=== PATIENT | female | born 1985 | race Caucasian/White ===

== ENCOUNTER 2019-08-08 17:31 | Emergency (ER) | payer MEDICAID ==
[2019-08-08 17:39] VITALS: BP 150/78
--- NOTE | 2019-08-08 17:46 | ER Document Report ---
ED Medical Screen (RME) - General Chief Complaint: Buttock Injury Stated Complaint: LOLA GUILLEN Time Seen by Provider: 08/08/19 17:43 Notes: HPI: 33-year-old female presenting to the emergency department complaining of pain in the sacral area over the last 3 to 4 days. Patient states she has a tendency to close doors and drawers with her buttocks is unsure whether she may have injured herself but notes increased swelling and pain to the sacral region. No rectal pain. No fever I have greeted and performed a rapid initial assessment of this patient. A comprehensive ED assessment and evaluation of the patient, analysis of test results and completion of the medical decision making process will be conducted by additional ED providers PHYSICAL EXAMINATION: GENERAL: Well-appearing, well-nourished and in mild acute distress. HEAD: Atraumatic, normocephalic. EYES: sclera anicteric, conjunctiva are normal. ENT: Moist mucous membranes. NECK: Normal range of motion LUNGS: Normal work of breathing HEART: 2+ radial pulses bilaterally ABD: limited by positioning for exam in triage. BACK: No visible erythema in the pilonidal region there is soft tissue swelling and tenderness on palpation of this region EXTREMITIES: no pitting or edema. No cyanosis. NEUROLOGICAL: No focal neurological deficits. Moves all extremities spontaneously and on command. PSYCH: Normal mood, normal affect. SKIN: Warm, Dry, normal turgor, no rashes or lesions noted. TRAVEL OUTSIDE OF THE [place] IN LAST 30 DAYS: No - Related Data Allergies/Adverse Reactions: acetaminophen [From Vicodin] Allergy (Verified 08/08/19 17:37) hydrocodone [From Vicodin] Allergy (Verified 08/08/19 17:37) Past Medical History - Social History Chew tobacco use (# tins/day): No Frequency of alcohol use: None Drug Abuse: None Physical Exam - Vital signs Vitals: Temp Pulse Resp BP Pulse Ox 98.4 F 105 H 18 150/78 H 98 08/08/19 17:38 08/08/19 17:38 08/08/19 17:38 08/08/19 17:38 08/08/19 17:38 Course - Vital Signs Vital signs: Temp Pulse Resp BP Pulse Ox 98.4 F 105 H 18 150/78 H 98 08/08/19 17:38 08/08/19 17:38 08/08/19 17:38 08/08/19 17:38 08/08/19 17:38
--- NOTE | 2019-08-08 18:20 | RADIOLOGY REPORT (SQ) ---
EXAM DESCRIPTION: SACRUM AND COCCYX COMPLETED DATE/TIME: 08/08/2019 6:07 pm REASON FOR STUDY: pain poss inj COMPARISON: None. NUMBER OF VIEWS: Three views. TECHNIQUE: AP, lateral, and tilt views of the sacrum and coccyx. LIMITATIONS: None. FINDINGS: MINERALIZATION: Normal. BONES: No acute fracture or dislocation identified. No worrisome bone lesions. SOFT TISSUES: No soft tissue swelling. No foreign body. OTHER: No other significant finding. IMPRESSION: No acute fracture or dislocation identified. TECHNICAL DOCUMENTATION: JOB ID: [id number] [place]-72 2010 [employer]- All Rights Reserved Reading location - IP/workstation name: [email or web address]
[2019-08-08] MEDS ORDERED: OXYCODONE-ACETAMINOPHEN 5-325 MG TABLET PO ONE (20:30)
[2019-08-08] MEDS ORDERED: PROMETHAZINE HCL 25 MG TABLET PO ONE (20:30)
--- NOTE | 2019-08-08 20:32 | ER Document Report ---
ED General - General Chief Complaint: Buttock Injury Stated Complaint: HURT TAILBONE Time Seen by Provider: 08/08/19 17:43 Notes: Patient is a 33-year-old female that comes emergency department for chief complaint of about 4 days of worsening pain in the tailbone/sacrum area. She states that it has become so painful she cannot sit down. She states she wonders if she injured the area, she states she frequently closes doors by bumping the morning doorknob with that same area. She denies a fall. She denies difficulty ambulating. She denies rectal pain, abdominal pain, flank pain otherwise. She does admit to some nausea but she denies vomiting or fever. She denies history of pilonidal cyst abscess or MRSA. She does report a history of type 2 diabetes, previously on metformin but not currently on any medications. TRAVEL OUTSIDE OF THE [place] IN LAST 30 DAYS: No - Related Data Allergies/Adverse Reactions: acetaminophen [From Vicodin] Allergy (Verified 08/08/19 17:37) hydrocodone [From Vicodin] Allergy (Verified 08/08/19 17:37) Past Medical History - General Information source: Patient - Social History Smoking Status: Current Every Day Smoker Chew tobacco use (# tins/day): No Frequency of alcohol use: None Drug Abuse: None Lives with: Family Family History: Reviewed & Not Pertinent Patient has suicidal ideation: No Patient has homicidal ideation: No Endocrine Medical History: Reports: Hx Diabetes Mellitus Type 2 - Immunizations Hx Diphtheria, Pertussis, Tetanus Vaccination: Yes Review of Systems - Review of Systems Constitutional: No symptoms reported EENT: No symptoms reported Cardiovascular: No symptoms reported Respiratory: No symptoms reported Gastrointestinal: No symptoms reported Genitourinary: No symptoms reported Female Genitourinary: No symptoms reported Musculoskeletal: See HPI Skin: See HPI Hematologic/Lymphatic: No symptoms reported Neurological/Psychological: No symptoms reported Physical Exam - Vital signs Vitals: Temp Pulse Resp BP Pulse Ox 98.4 F 105 H 18 150/78 H 98 08/08/19 17:38 08/08/19 17:38 08/08/19 17:38 08/08/19 17:38 08/08/19 17:38 - Notes Notes: GENERAL: Alert, interacts well. Patient lying on her side but does not appear to be in distress HEAD: Normocephalic, atraumatic. EYES: Pupils equal, round, and reactive to light. Extraocular movements intact. ENT: Oral mucosa moist, tongue midline. Oropharynx unremarkable. Airway patent. LUNGS: Clear to auscultation bilaterally, no wheezes, rales, or rhonchi. No respiratory distress. HEART: Regular rate and rhythm. No murmur ABDOMEN: Soft, non-tender. Non-distended. RECTAL: Rectal exam is externally normal but patient does have erythema and tenderness at the gluteal cleft superiorly consistent with developing infection/pilonidal cyst abscess. No overt induration or head is noted however. Unremarkable otherwise. Enid WALTON present at bedside during exam. EXTREMITIES: Moves all 4 extremities spontaneously. No edema, normal radial and dorsalis pedis pulses bilaterally. No cyanosis. BACK: no cervical, thoracic, lumbar midline tenderness. No saddle anesthesia, normal distal neurovascular exam. Moves all extremities in full range of motion. NEUROLOGICAL: Alert and oriented x3. Normal speech. Cranial nerves II through XII grossly intact. PSYCH: Irritable SKIN: Warm, dry, normal turgor. No rashes or lesions noted. Course - Re-evaluation Re-evalutation: X-ray is normal. On evaluation patient is very irritable. Her exam is concerning for developing pilonidal cyst abscess although there is no clear head, I explained to patient that I would medicate her for pain, I recommended we perform some lab testing because of her tachycardia and nausea with uncontrolled diabetes, I also will bring the ultrasound back and evaluate the area to see if there is a drainable abscess. I also explained that she would likely need antibiotics. Patient and state understanding and agreement with plan. 08/08/19 20:37 Nursing staff approached me, stated that patient had become very angry, she apparently had told nursing staff that they had bedbugs and nursing staff had attempted to offer a change of clothing for containment, nursing staff also states that they were angry about the wait time and that they had not been medicated yet, I had just left the room less than 5 minutes ago. I went back to discuss with patient but I could not find the patient with a significant other, they appear to have eloped from the facility. Medical staff does state they saw him leaving the hospital. Before patient left I had expressed that I would place her back on medications for diabetes and I did discuss with her what I believe is an infection. - Vital Signs Vital signs: Temp Pulse Resp BP Pulse Ox 98.4 F 105 H 18 150/78 H 98 08/08/19 17:38 08/08/19 17:38 08/08/19 17:38 08/08/19 17:38 08/08/19 17:38 Discharge - Discharge Clinical Impression: Pilonidal cyst with abscess, Flank pain Disposition: ELOPED
== END 2019-08-08 20:44 | disposition left against medical advice (07) ==
LOC: ER 17:31
DX: L05.01 Pilonidal cyst with abscess (principal); E11.65 Type 2 diabetes mellitus with hyperglycemia; R11.0 Nausea; R00.0 Tachycardia, unspecified; F17.200 Nicotine dependence, unspecified, uncomplicated; Z91.14 Patient's other noncompliance with medication regimen; Z88.8 Allergy status to other drugs, medicaments and biological substances; Z88.6 Allergy status to analgesic agent; Z88.5 Allergy status to narcotic agent; Z53.29 Procedure and treatment not carried out because of patient's decision for other reasons
CPT/HCPCS: 72220; 99281

== ENCOUNTER 2019-09-02 13:33 | Observation (INO) | payer MEDICAID ==
--- NOTE | 2019-09-02 14:04 | ER Document Report ---
HPI - HPI Time Seen by Provider: 09/02/19 13:43 Pain Level: 3 Notes: 33-year-old female patient presenting to the emergency department chief complaint of pilonidal cyst. Patient was seen this morning at [facility] and Dr. Johnson tried to pull some fluid off of the abscess. This was sent for culture. Apparently Dr. Johnson recommended patient come to [facility], she initially refused but then presented to our triage desk. She denies any fevers. She reports her abscesses in the tailbone area and states that it is been there for about 3 to 4 days. - CONSTITUTIONAL Constitutional: DENIES: Fever, Chills - REPRODUCTIVE Reproductive: DENIES: : Past Medical History - General Information source: Patient - Social History Smoking Status: Current Every Day Smoker Chew tobacco use (# tins/day): No Frequency of alcohol use: None Drug Abuse: None Family History: Reviewed & Not Pertinent Patient has suicidal ideation: No Patient has homicidal ideation: No Endocrine Medical History: Reports: Hx Diabetes Mellitus Type 2 Past Surgical History: Reports: Hx Tubal Ligation - Immunizations Hx Diphtheria, Pertussis, Tetanus Vaccination: Yes Vertical Provider Document - CONSTITUTIONAL Notes: PHYSICAL EXAMINATION: GENERAL: Well-appearing, well-nourished and in no acute distress. HEAD: Atraumatic, normocephalic. EYES: Pupils equal round extraocular movements intact, conjunctiva are normal. ENT: Nares patent NECK: Normal range of motion LUNGS: No respiratory distress Musculoskeletal: Normal range of motion NEUROLOGICAL: Normal speech, normal gait. PSYCH: Normal mood, normal affect. SKIN: Large area of erythema and induration noted to upper buttocks. - INFECTION CONTROL TRAVEL OUTSIDE OF THE [place] IN LAST 30 DAYS: No Course - Re-evaluation Re-evalutation: Called and spoke with Dr. Kim. Patient will need to be admitted and then be n.p.o. after midnight. She will have incision and drainage performed in the OR tomorrow morning. Patient is aware of plan and agreeable to same. - Vital Signs Vital signs: Temp Pulse Resp BP Pulse Ox 98.3 F 122 H 18 131/72 H 92 09/02/19 13:36 09/02/19 13:36 09/02/19 13:36 09/02/19 13:36 04/01/20 13:36 Discharge - Discharge Clinical Impression: Abscess Condition: Stable Disposition: ADMITTED OBSERVATION Admitting Provider: Surgicalist Unit Admitted: Surgical Floor Referrals: MAGDA JOHNSON MD [Primary Care Provider] - Follow up as needed
[2019-09-02] MEDS ORDERED: NORMAL SALINE 1000 ML 1,000 ML IV ONE (14:05)
[2019-09-02 14:53] LABS: ABSOLUTE EOSINOPHILS # (AUTO) 0.1 10^3/uL (0.0-0.6); ABSOLUTE LYMPHOCYTES (AUTO) 1.9 10^3/uL (0.5-4.7); ABSOLUTE MONOCYTES (AUTO) 0.8 10^3/uL (0.1-1.4); ABSOLUTE NEUT (AUTO) 5.9 10^3/uL (1.7-8.2); BASOPHILS % (AUTO) 0.5 % (0-2); EOSINOPHILS % (AUTO) 1.1 % (0-6); HEMATOCRIT 36.3 % (36.0-47.0); HEMOGLOBIN 12.9 g/dL (12.0-15.5); LYMPHOCYTES % (AUTO) 21.2 % (13-45); MEAN CORPUSCULAR HEMOGLOBIN 31.1 pg (27.0-33.4); MEAN CORPUSCULAR HGB CONC 35.4 g/dL (32.0-36.0); MEAN CORPUSCULAR VOLUME 88 fl (80-97); MONOCYTES % (AUTO) 9.3 % (3-13); PLATELET COUNT 340 10^3/uL (150-450); RED BLOOD COUNT 4.14 10^6/uL (3.72-5.28); RED CELL DISTRIBUTION WIDTH 13.4 % (11.5-14.0); SEGMENTED NEUTROPHILS % (AUTO) 67.9 % (42-78); TOTAL CELLS COUNTED % (AUTO) 100 %; WHITE BLOOD COUNT 8.7 10^3/uL (4.0-10.5)
[2019-09-02 15:08] LABS: ALBUMIN 3.5 g/dL (3.5-5.0); ALKALINE PHOSPHATASE 93 U/L (38-126); ANION GAP 9 (5-19); ASPARTATE AMINO TRANSFERASE 23 U/L (14-36); BILIRUBIN,DIRECT 0.3 mg/dL (0.0-0.4); BILIRUBIN,TOTAL 0.3 mg/dL (0.2-1.3); BLOOD UREA NITROGEN 7 mg/dL (7-20); CALCIUM 9.6 mg/dL (8.4-10.2); CARBON DIOXIDE 35 mmol/L (22-30); CHLORIDE 90 mmol/L (98-107); POTASSIUM 3.5 mmol/L (3.6-5.0); TOTAL PROTEIN 7.2 g/dL (6.3-8.2)
[2019-09-02 15:17] LABS: GLUCOSE 406 mg/dL (75-110)
[2019-09-02] MEDS ORDERED: GLUCAGON,HUMAN RECOMB 1 MG INJ SUBCUT PRN (15:27)
[2019-09-02] MEDS ORDERED: ONDANSETRON HCL INJ/PF 4 MG/2 ML SDV IV PRN (15:27)
[2019-09-02] MEDS ORDERED: DEXTROSE 40% GEL 15 GM TUBE PO PRN ×2 (15:27)
[2019-09-02] MEDS ORDERED: DEXTROSE 50%-WATER 25 GM/50 ML DISP.SYRIN IV PRN ×2 (15:27)
[2019-09-02] MEDS ORDERED: METFORMIN HCL 500 MG TABLET PO ONE (15:31)
[2019-09-02] MEDS: NORMAL SALINE 1000 ML 1,000 ML IV PRN (15:44)
[2019-09-02] MEDS ORDERED: VANCOMYCIN HCL 0 MG in DEXTROSE 5%-WATER 250 ML IV NR (15:45)
[2019-09-02] MEDS: MORPHINE SULFATE 10 MG/ML INJ IV PRN ×2 (15:55→20:21)
[2019-09-02 16:04] LABS: APPEARANCE,URINE SLIGHTLY-CLOUDY; BILIRUBIN,URINE NEGATIVE (NEGATIVE); COLOR,URINE YELLOW; GLUCOSE, URINE >=500 mg/dL (NEGATIVE); KETONES,URINE TRACE mg/dL (NEGATIVE); LEUKOCYTE ESTERASE,URINE TRACE (NEGATIVE); NITRITE,URINE NEGATIVE (NEGATIVE); PROTEIN,URINE NEGATIVE (NEGATIVE); URINE SPECIFIC GRAVITY 1.025; UROBILINOGEN,URINE NEGATIVE mg/dL (<2.0)
--- NOTE | 2019-09-02 16:16 | PDOC CONSULTATION ---
Consultation Consult Date: 09/02/19 Attending physician:: CEASAR COKER Provider Consulted: SILVESTRE FIELDS JR Consult reason:: diabetes uncontrolled History of Present Illness Admission Date/PCP: 09/02/19 14:46 Patient complains of: Buttock pain History of Present Illness: CARINE PARKER is a 33 year old female who comes in with a 4-week history of having pain around her rectum and tailbone. Patient was actually in the emergency room on August 07 with the same complaint. However at that time patient eloped and left AMA.receiving treatment. States that she had had the pain near her tailbone for several days prior to that. Put this at now almost a 4-week history of pain.. She states she had a similar event when she was around 13 years old and had to have an I&D procedure done an outpatient, no problems since then.. Patient is on the schedule for tomorrow to have an I&D procedure surgery and we were to consult for her uncontrolled diabetes. Patient has had 6 children and with every she has had gestational diabetes is resolved once the delivery was performed. Ever this last delivery which occurred 18 months ago the diabetes persisted and she was actually on medication till December of last year when she stopped her medicine because she could not afford it. Patient states she started up her medicine for diabetes 1 week ago. Patient states that she has been on a sliding scale of insulin before while in the hospital but never as an outpatient. Patient denies other chronic illnesses such as hypertension or heart disease. Patient's father at age of 47 due to an OH. Patient states she smokes 1 pack of cigarettes per day and has a [id number] history. She denies drinking any alcohol. 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 Patient states that it is quite uncomfortable to sit but does not have any pain with bowel movements. Patient states that the wound has been draining on its own in a white milky substance with no foul odor. Past Medical History Cardiac Medical History: Reports: None Pulmonary Medical History: Reports: None EENT Medical History: Reports: None Neurological Medical History: Reports: None Endocrine Medical History: Reports: Diabetes Mellitus Type 2 Malignancy Medical History: Reports: None Psychiatric Medical History: Reports: Tobacco Dependency Past Surgical History Past Surgical History: Reports: Tubal Ligation Social History Smoking Status: Current Every Day Smoker Electronic Cigarette use?: No - Advance Directive Resuscitation Status: Full Code Family History Family History: Reviewed & Not Pertinent, CAD Parental Family History Reviewed: No Children Family History Reviewed: No Sibling(s) Family History Reviewed.: No Medication/Allergy Home Medications: Glipizide [Glucotrol 5 mg Tablet] 2.5 mg PO BID 09/02/19 Loratadine [Claritin 10 mg Tablet] 10 mg PO DAILY 09/02/19 Metformin HCl [Glucophage 500 mg Tablet] 500 mg PO BID 09/02/19 Allergies/Adverse Reactions: No Known Allergies Allergy (Unverified 09/02/19 16:05) Review of Systems Constitutional: ABSENT: chills, fever(s), headache(s), weight gain, weight loss Cardiovascular: ABSENT: chest pain, dyspnea on exertion, edema, orthropnea, palpitations Respiratory: ABSENT: cough, hemoptysis Gastrointestinal: ABSENT: abdominal pain, constipation, diarrhea, hematemesis, hematochezia, nausea, vomiting Genitourinary: PRESENT: other - Rectal and buttock pain, soft tissue swelling Neurological: ABSENT: abnormal gait, abnormal speech, confusion, dizziness, focal weakness, syncope Psychiatric: ABSENT: anxiety, depression, homidical ideation, suicidal ideation Physical Exam Vital Signs: Temp Pulse Resp BP Pulse Ox 98.3 F 122 H 18 131/72 H 92 09/02/19 13:36 09/02/19 13:36 09/02/19 13:36 09/02/19 13:36 09/02/19 13:36 Intake & Output 09/01/19 09/02/19 09/03/19 06:59 06:59 06:59 Intake Total 1000 Balance 1000 Weight 72.7 kg General appearance: PRESENT: no acute distress, well-developed, well-nourished Respiratory exam: PRESENT: clear to auscultation gilma. ABSENT: rales, rhonchi, wheezes Cardiovascular exam: PRESENT: RRR. ABSENT: diastolic murmur, rubs, systolic mu rmur Rectal exam: PRESENT: tenderness, other - With a supervisor paper products present, large area approximately 10 x 10 cm in diameter just cephalad to the rectum. Indurated, tender, edematous, red apparent abscess. Apeers to have had a source where it has been draining. Neurological exam: PRESENT: alert, awake, oriented to person, oriented to place, oriented to time, oriented to situation, CN II-XII grossly intact. ABSENT: motor sensory deficit Psychiatric exam: PRESENT: appropriate affect, normal mood. ABSENT: homicidal ideation, suicidal ideation Results Laboratory Results: 09/02/19 14:30 09/02/19 14:30 09/02/19 09/02/19 14:30 14:30 WBC 8.7 RBC 4.14 Hgb 12.9 Hct 36.3 MCV 88 MCH 31.1 MCHC 35.4 RDW 13.4 Plt Count 340 Seg Neutrophils % 67.9 Sodium 134.1 L Potassium 3.5 L Chloride 90 L Carbon Dioxide 35 H Anion Gap 9 BUN 7 Creatinine 0.45 L Est GFR ( Amer) > 60 Glucose 406 H* Calcium 9.6 Total Bilirubin 0.3 AST 23 Alkaline Phosphatase 93 Total Protein 7.2 Albumin 3.5 Assessment and Plan - Diagnosis (1) Diabetes type 2, uncontrolled Is this a current diagnosis for this admission?: Yes (2) Patient noncompliance Is this a current diagnosis for this admission?: Yes (3) Abscess Is this a current diagnosis for this admission?: Yes (4) Flank pain Is this a current diagnosis for this admission?: Yes (5) Pilonidal cyst with abscess Is this a current diagnosis for this admission?: Yes (6) Tobacco abuse Is this a current diagnosis for this admission?: Yes - Plan Summary Summary: Tells me she stopped all of her medications for diabetes last year in December 2018 when she moved down here from [place]. Tells me that she could not afford her medi cine. Also tells me that she started taking her medicine again 1 week ago.. According to the chart she is supposed to be taking metformin 500 mg twice daily and glipizide 2.5 mg twice daily. While interviewing the patient she received thousand milligrams of metformin as ordered by the ER provider, at approximately 1600 hrs. Patient is to be n.p.o. after midnight tonight. Think for the rest of the evening and tomorrow we will just treat her with a sliding scale of insulin, as you have ordered, and not give any further p.o. meds for her diabetes. Once she has her surgery tomorrow morning and begins eating a normal diet we can reinstitute her medications as prescribed above, and continue to cover with a sliding scale. I have ordered a hemoglobin A1c but I am sure it is going to be greatly elevated since she has not been taking her medicines regularly. I have also ordered a EKG, and do not see a need for a preop chest x-ray. Patient will need a primary care provider once she is discharged and we can help arrange this if necessary. - Time Time Spent with patient: 35 or more minutes
[2019-09-02] MEDS: INSULIN LISPRO 100 UNIT/ML 3 ML VIAL SUBCUT SCH ×2 (17:44→21:57)
--- NOTE | 2019-09-02 19:33 | PDOC H&P ---
History of Present Illness Admission Date/PCP: 09/02/19 14:46 Patient complains of: sacral pain and swelling History of Present Illness: CARINE PARKER is a 33 year old female with a several week history of pain and swelling in the pilonidal region. The patient has had an abscess of the area before, which spontaneously drained. Recently she was seen in the ER and given oral antibiotics. These have not helped. The abscess has continued to grow. The patient is a diabetic, but does not check her sugars or take her medications. Her blood sugar today is over 400. The patient denies fevers or chills, headache, chest pain, nausea, vomiting, melena, hematochezia, hematemesis, blurry vision, orthostasis, malaise, fatigue. She does report sacral pain. Her pain is 8 out of 10. Palpation and movement make it worse. Nothing makes it better. Her pain does not radiate. She reports redness and swelling, but denies recent drainage. Past Medical History Cardiac Medical History: Reports: None Pulmonary Medical History: Reports: None EENT Medical History: Reports: None Neurological Medical History: Reports: None Endocrine Medical History: Reports: Diabetes Mellitus Type 2 Malignancy Medical History: Reports: None Psychiatric Medical History: Reports: Tobacco Dependency Past Surgical History Past Surgical History: Reports: Tubal Ligation Social History Smoking Status: Current Every Day Smoker Electronic Cigarette use?: No - Advance Directive Resuscitation Status: Full Code Family History Family History: Reviewed & Not Pertinent, CAD Parental Family History Reviewed: Yes Children Family History Reviewed: Yes Sibling(s) Family History Reviewed.: Yes Medication/Allergy Home Medications: Glipizide [Glucotrol 5 mg Tablet] 2.5 mg PO BID 09/02/19 Loratadine [Claritin 10 mg Tablet] 10 mg PO DAILY 09/02/19 Metformin HCl [Glucophage 500 mg Tablet] 500 mg PO BID 09/02/19 Allergies/Adverse Reactions: No Known Allergies Allergy (Unverified 09/02/19 16:05) Review of Systems Eyes: ABSENT: visual disturbances Ears: ABSENT: hearing changes Nose, Mouth, and Throat: ABSENT: mouth pain, sore throat Cardiovascular: ABSENT: chest pain Respiratory: ABSENT: cough Gastrointestinal: ABSENT: abdominal pain, hematochezia, melena, nausea, vomiting Genitourinary: ABSENT: dysuria Integumentary: PRESENT: other - Swelling, erythema, and induration in the sacral area Neurological: ABSENT: confusion, convulsions, dizziness Psychiatric: ABSENT: anxiety, depression Endocrine: ABSENT: cold intolerance, heat intolerance Hematologic/Lymphatic: ABSENT: easy bleeding, easy bruising Physical Exam Vital Signs: Temp Pulse Resp BP Pulse Ox 98.3 F 98 18 117/67 97 09/02/19 17:22 09/02/19 17:22 09/02/19 17:22 09/02/19 17:22 09/02/19 17:22 Intake & Output 09/01/19 09/02/19 09/03/19 06:59 06:59 06:59 Intake Total 1000 Balance 1000 Weight 72.7 kg General appearance: PRESENT: no acute distress, cooperative Head exam: PRESENT: atraumatic, normocephalic Eye exam: PRESENT: EOMI, PERRLA. ABSENT: scleral icterus Mouth exam: PRESENT: moist, neck supple Teeth exam: PRESENT: poor dentation Neck exam: ABSENT: meningismus, tenderness, thyromegaly, tracheal deviation Respiratory exam: PRESENT: unlabored. ABSENT: tachypnea, wheezes Cardiovascular exam: ABSENT: tachycardia Pulses: PRESENT: normal radial pulses Vascular exam: PRESENT: normal capillary refill GI/Abdominal exam: PRESENT: soft. ABSENT: distended, firm, rebound, tenderness Extremities exam: ABSENT: clubbing Musculoskeletal exam: ABSENT: deformity Neurological exam: PRESENT: alert, awake, oriented to person, oriented to place, oriented to time, oriented to situation, CN II-XII grossly intact Psychiatric exam: PRESENT: anxious. ABSENT: agitated, depressed Focused psych exam: ABSENT: delusional Skin exam: PRESENT: erythema, other - Large sacral abscess, approximately 15 cm. There is erythema, induration, and fluctuance associated with it. She is tender to palpation in the area. There is no drainage appreciated at this time.. ABSENT: cyanosis, jaundice Results Laboratory Results: 09/02/19 14:30 09/02/19 14:30 09/02/19 09/02/19 09/02/19 14:30 14:30 15:49 WBC 8.7 RBC 4.14 Hgb 12.9 Hct 36.3 MCV 88 MCH 31.1 MCHC 35.4 RDW 13.4 Plt Count 340 Seg Neutrophils % 67.9 Sodium 134.1 L Potassium 3.5 L Chloride 90 L Carbon Dioxide 35 H Anion Gap 9 BUN 7 Creatinine 0.45 L Est GFR ( Amer) > 60 Glucose 406 H* Calcium 9.6 Total Bilirubin 0.3 AST 23 Alkaline Phosphatase 93 Total Protein 7.2 Albumin 3.5 Urine Color YELLOW Urine Appearance SLIGHTLY-CLOUDY Urine pH 7.0 Ur Specific Bally 1.025 Urine Protein NEGATIVE Urine Glucose (UA) >=500 H Urine Ketones TRACE H Urine Blood SMALL H Urine Nitrite NEGATIVE Ur Leukocyte Esterase TRACE H Urine WBC (Auto) 2 Urine RBC (Auto) 1 Assessment & Plan - Diagnosis (1) Diabetes type 2, uncontrolled Qualifiers: Glycemic state: with hyperglycemia Qualified Code(s): E11.65 - Type 2 diabetes mellitus with hyperglycemia Is this a current diagnosis for this admission?: Yes (2) Pilonidal cyst with abscess Is this a current diagnosis for this admission?: Yes - Plan Summary Plan Summary: 33-year-old uncontrolled diabetic female with a large pilonidal abscess. The patient has been taking antibiotics at home, without relief of her symptoms. She presents today for further treatment. The patient recently ate. I will start her on broad-spectrum antibiotics, consult the hospitalist for blood sugar control, and plan for surgical intervention tomorrow. Risks/benefits discussed, informed consent obtained, and all questions answered. The patient is in agreement with the treatment plan.
[2019-09-02] MEDS: PIPERACILLIN SODIUM/TAZOBACTAM 3.375 GM in NORMAL SALINE 100 ML IV SCH (20:09)
[2019-09-02] MEDS: VANCOMYCIN HCL 1,000 MG in DEXTROSE 5%-WATER 250 ML IV SCH (22:00)
[2019-09-03] MEDS: PIPERACILLIN SODIUM/TAZOBACTAM 3.375 GM in NORMAL SALINE 100 ML IV SCH ×5 (00:43→23:22)
[2019-09-03] MEDS: VANCOMYCIN HCL 1,000 MG in DEXTROSE 5%-WATER 250 ML IV SCH ×3 (05:41→20:59)
[2019-09-03] MEDS: MORPHINE SULFATE 10 MG/ML INJ IV PRN (05:50)
[2019-09-03] MEDS: INSULIN LISPRO 100 UNIT/ML 3 ML VIAL SUBCUT SCH ×4 (07:48→21:04)
[2019-09-03] MEDS ORDERED: BUPIVACAINE HCL 0.25 % INJ/PF (2.5 MG/1 ML) 30 ML VIAL ONE (08:48)
[2019-09-03] MEDS ORDERED: LIDOCAINE 1% INJ-PF (10 MG/ML) 30 ML SDV ONE (08:48)
[2019-09-03] MEDS ORDERED: ONDANSETRON HCL INJ/PF 4 MG/2 ML SDV ONE (08:53)
[2019-09-03] MEDS ORDERED: MIDAZOLAM 2 MG/2 ML INJ ONE (08:53)
[2019-09-03] MEDS ORDERED: FENTANYL CITRATE INJ/PF 100 MCG/2 ML AMPUL ONE (08:53)
[2019-09-03] MEDS ORDERED: PROPOFOL INJ 200 MG/20 ML VIAL IV ONE (08:54)
--- NOTE | 2019-09-03 09:30 | PDOC PROGRESS REPORT ---
Subjective Progress Note for:: 09/03/19 Subjective:: 33-year-old female, diabetic, with a large pilonidal abscess. The patient continues to complain of buttock pain, swelling, induration, and redness. She denies overt fevers or chills. She denies nausea, vomiting, headache, dizziness, orthostasis, fatigue, malaise. Reason For Visit: LARGE INFECTED PILONIDAL CYST, HYPERGLYCEMIA Physical Exam Vital Signs: Temp Pulse Resp BP Pulse Ox 98.3 F 94 16 141/75 H 99 09/03/19 07:51 09/03/19 07:51 09/03/19 07:51 09/03/19 07:51 09/03/19 07:51 Intake & Output 09/02/19 09/03/19 09/04/19 06:59 06:59 06:59 Intake Total 2350 250 Balance 2350 250 Weight 76.3 kg General appearance: PRESENT: no acute distress, cooperative Head exam: PRESENT: atraumatic, normocephalic Eye exam: PRESENT: EOMI, PERRLA. ABSENT: scleral icterus Mouth exam: PRESENT: moist, neck supple Neck exam: ABSENT: meningismus, tenderness, thyromegaly, tracheal deviation Cardiovascular exam: ABSENT: tachycardia Pulses: PRESENT: normal radial pulses GI/Abdominal exam: PRESENT: soft. ABSENT: tenderness Skin exam: PRESENT: erythema, other - Fluctuant mass in the pilonidal area, extending to the right of the midline. I estimate it to be approximately 10 to 15 cm in diameter. Results Laboratory Results: 09/02/19 14:30 09/02/19 14:30 09/02/19 09/02/19 09/02/19 14:30 14:30 15:49 WBC 8.7 RBC 4.14 Hgb 12.9 Hct 36.3 MCV 88 MCH 31.1 MCHC 35.4 RDW 13.4 Plt Count 340 Seg Neutrophils % 67.9 Sodium 134.1 L Potassium 3.5 L Chloride 90 L Carbon Dioxide 35 H Anion Gap 9 BUN 7 Creatinine 0.45 L Est GFR ( Amer) > 60 Glucose 406 H* Calcium 9.6 Total Bilirubin 0.3 AST 23 Alkaline Phosphatase 93 Total Protein 7.2 Albumin 3.5 Urine Color YELLOW Urine Appearance SLIGHTLY-CLOUDY Urine pH 7.0 Ur Specific [place] 1.025 Urine Protein NEGATIVE Urine Glucose (UA) >=500 H Urine Ketones TRACE H Urine Blood SMALL H Urine Nitrite NEGATIVE Ur Leukocyte Esterase TRACE H Urine WBC (Auto) 2 Urine RBC (Auto) 1 Assessment & Plan - Diagnosis (1) Diabetes type 2, uncontrolled Qualifiers: Glycemic state: with hyperglycemia Qualified Code(s): E11.65 - Type 2 diabetes mellitus with hyperglycemia Is this a current diagnosis for this admission?: Yes (2) Pilonidal cyst with abscess Is this a current diagnosis for this admission?: Yes - Plan Summary Plan Summary: 33-year-old uncontrolled diabetic female with a large pilonidal abscess. The patient has been taking antibiotics at home, without relief of her symptoms. She was admitted for surgical treatment. Continue antibiotics. Plan for incision and drainage today. Risks/benefits discussed, informed consent obtained, and all questions answered.
--- NOTE | 2019-09-03 09:37 | EKG REPORT ---
SEVERITY:- BORDERLINE ECG - SINUS RHYTHM BORDERLINE T ABNORMALITIES, INFERIOR LEADS : Confirmed by: Meir Berg 03-Sep-2019 09:36:45
[2019-09-03] MEDS ORDERED: MEPERIDINE HCL/PF INJ 25 MG/1 ML DISP.SYRIN IV PRN (09:58)
[2019-09-03] MEDS ORDERED: FENTANYL CITRATE INJ/PF 100 MCG/2 ML AMPUL IV PRN ×3 (09:58)
[2019-09-03] MEDS ORDERED: DIPHENHYDRAMINE HCL 50 MG/ML VIAL IV PRN (09:58)
[2019-09-03] MEDS ORDERED: PROMETHAZINE HCL INJ 25 MG/1 ML VIAL IV PRN ×2 (09:58)
[2019-09-03] MEDS ORDERED: OXYCODONE-ACETAMINOPHEN 5-325 MG TABLET PO PRN ×2 (09:58)
[2019-09-03] MEDS ORDERED: MORPHINE SULFATE 10 MG/ML INJ IV PRN (09:58)
--- NOTE | 2019-09-03 10:42 | Operative Report ---
Nonrecallable Operative Report DATE OF SURGERY: 09/03/19 PREOPERATIVE DIAGNOSIS: 15 cm pilonidal abscess POSTOPERATIVE DIAGNOSIS: Same as above OPERATION: 1. Incision and drainage of large, loculated, 15 cm pilonidal abscess. 2. Sharp, excisional debridement of necrotic skin and fatty soft tissue. SURGEON: CEASAR COKER ANESTHESIA: Spinal - With local TISSUE REMOVED OR ALTERED: 1. Debrided necrotic soft tissue. 2. Wound culture. COMPLICATIONS: None apparent ESTIMATED BLOOD LOSS: 20 cc PROCEDURE: Drains/implants: #1 [place] drain in left lateral tunneling tract. 2. Kerlix soaked in Betadine within the large midline cavity. Procedure in detail: After informed consent was obtained, the patient was brou ght to the operating room and laid in the left lateral decubitus position. After adequate anesthesia had been obtained, a midline incision was created. There was a large amount of purulent material present. The abscess cavity was then entered. Wound cultures were taken. There is a large amount of necrotic subcutaneous tissue. This was debrided away sharply with a 15 blade scalpel. After the cavity was inspected. There was a tunneling sinus extending to the left lateral side. This was explored digitally. A counterincision was created in the left lateral back/buttock area. A [place] drain was placed through this area to keep the tract open. Next, the main cavity was irrigated and curetted. The cavity measured approximately 15 cm in total diameter. Once the cavity was cleaned, a Kerlix soaked in Betadine was packed into the wound. A dressing was placed, and the procedure was concluded. All sponge, instrument, and needle counts were correct x2. Condition: Stable.
[2019-09-03] MEDS: HYDROCODONE/ACETAMINOPHEN 10-325 MG TABLET PO PRN (17:16)
[2019-09-03] MEDS: GLIPIZIDE 5 MG TABLET PO SCH (18:07)
--- NOTE | 2019-09-03 18:28 | PDOC PROGRESS REPORT ---
Subjective Progress Note for:: 09/03/19 Reason For Visit: LARGE INFECTED PILONIDAL CYST, HYPERGLYCEMIA 09/03/2019 Diabetes uncontrolled, hyperglycemia, pilonidal cyst Physical Exam Vital Signs: Temp Pulse Resp BP Pulse Ox 98.1 F 88 18 171/68 H 96 09/03/19 16:05 09/03/19 16:05 09/03/19 16:05 09/03/19 16:05 09/03/19 16:05 Intake & Output 09/02/19 09/03/19 09/04/19 06:59 06:59 06:59 Intake Total 2350 2350 Output Total 0 Balance 2350 2350 Weight 76.3 kg General appearance: PRESENT: no acute distress, other - Patient is asking to go home on the afternoon of surgery Respiratory exam: PRESENT: clear to auscultation gilma. ABSENT: rales, rhonchi, wheezes Cardiovascular exam: PRESENT: RRR. ABSENT: diastolic murmur, rubs, systolic mu rmur Neurological exam: PRESENT: alert, awake, oriented to person, oriented to place, oriented to time, oriented to situation, CN II-XII grossly intact. ABSENT: motor sensory deficit Psychiatric exam: PRESENT: appropriate affect, normal mood, other - Patient is in a good mood. ABSENT: homicidal ideation, suicidal ideation Results Laboratory Results: 09/02/19 14:30 09/02/19 14:30 Assessment and Plan - Diagnosis (1) Diabetes type 2, uncontrolled Qualifiers: Glycemic state: with hyperglycemia Qualified Code(s): E11.65 - Type 2 d iabetes mellitus with hyperglycemia Is this a current diagnosis for this admission?: Yes (2) Patient noncompliance Is this a current diagnosis for this admission?: Yes (3) Abscess Is this a current diagnosis for this admission?: Yes (4) Flank pain Is this a current diagnosis for this admission?: Yes (5) Pilonidal cyst with abscess Is this a current diagnosis for this admission?: Yes (6) Tobacco abuse Is this a current diagnosis for this admission?: Yes - Plan Summary Summary: Tells me she stopped all of her medications for diabetes last year in December 2018 when she moved down here from [place]. Tells me that she could not afford her medicine. Also tells me that she started taking her medicine again 1 week ago.. According to the chart she is supposed to be taking metformin 500 mg twice daily and glipizide 2.5 mg twice daily. While interviewing the patient she received thousand milligrams of metformin as ordered by the ER provider, at approximately 1600 hrs. Patient is to be n.p.o. after midnight tonight. Think for the rest of the evening and tomorrow we will just treat her with a sliding scale of insulin, as you have ordered, and not give any further p.o. meds for her diabetes. Once she has her surgery tomorrow morning and begins eating a normal diet we can reinstitute her medications as prescribed above, and continue to cover with a sliding scale. I have ordered a hemoglobin A1c but I am sure it is going to be greatly elevated since she has not been taking her medicines regularly. I have also ordered a EKG, and do not see a need for a preop chest x-ray. Patient will need a primary care provider once she is discharged and we can help arrange this if necessary. 09/03/2019 Vital signs this morning showed her blood pressure to be up at 171/68, he was on no antihypertensives prior to coming to the hospital Blood sugar this morning was improved down to 332, and pressure was 98.1 pulse was 88 and regular Hemoglobin A1c 11.9 Repeat labs in the morning She has put back on both her metformin and glipizide. At the time of discharge I will write for a 30-day prescription - Time Time Spent with patient: 25-34 minutes
[2019-09-03] MEDS: NORMAL SALINE 1000 ML 1,000 ML IV PRN (21:03)
[2019-09-04] MEDS: PIPERACILLIN SODIUM/TAZOBACTAM 3.375 GM in NORMAL SALINE 100 ML IV SCH (05:16)
[2019-09-04] MEDS: HYDROCODONE/ACETAMINOPHEN 10-325 MG TABLET PO PRN (06:24)
[2019-09-04] MEDS: VANCOMYCIN HCL 1,000 MG in DEXTROSE 5%-WATER 250 ML IV SCH (06:24)
[2019-09-04 07:03] LABS: ABSOLUTE EOSINOPHILS # (AUTO) 0.1 10^3/uL (0.0-0.6); ABSOLUTE LYMPHOCYTES (AUTO) 1.8 10^3/uL (0.5-4.7); ABSOLUTE MONOCYTES (AUTO) 0.6 10^3/uL (0.1-1.4); ABSOLUTE NEUT (AUTO) 3.8 10^3/uL (1.7-8.2); BASOPHILS % (AUTO) 0.6 % (0-2); EOSINOPHILS % (AUTO) 2.3 % (0-6); HEMATOCRIT 30.8 % (36.0-47.0); LYMPHOCYTES % (AUTO) 27.9 % (13-45); MEAN CORPUSCULAR HEMOGLOBIN 30.5 pg (27.0-33.4); MEAN CORPUSCULAR HGB CONC 34.7 g/dL (32.0-36.0); MEAN CORPUSCULAR VOLUME 88 fl (80-97); MONOCYTES % (AUTO) 9.6 % (3-13); PLATELET COUNT 281 10^3/uL (150-450); RED CELL DISTRIBUTION WIDTH 13.3 % (11.5-14.0); SEGMENTED NEUTROPHILS % (AUTO) 59.6 % (42-78); TOTAL CELLS COUNTED % (AUTO) 100 %; WHITE BLOOD COUNT 6.4 10^3/uL (4.0-10.5)
[2019-09-04 07:05] LABS: BLOOD UREA NITROGEN 4 mg/dL (7-20); CHLORIDE 98 mmol/L (98-107); GLUCOSE 205 mg/dL (75-110); POTASSIUM 3.5 mmol/L (3.6-5.0)
[2019-09-04 07:06] LABS: HEMOGLOBIN 10.7 g/dL (12.0-15.5); VANCOMYCIN,TROUGH 13.5 ug/mL (5.0-20.0)
[2019-09-04 07:18] LABS: CARBON DIOXIDE 33 mmol/L (22-30)
[2019-09-04 07:20] LABS: ANION GAP 5 (5-19)
--- NOTE | 2019-09-04 09:19 | PDOC PROGRESS REPORT ---
Subjective Progress Note for:: 09/04/19 Reason For Visit: LARGE INFECTED PILONIDAL CYST, HYPERGLYCEMIA Pilonidal cyst, diabetes uncontrolled, patient noncompliant, left radial nerve palsy Physical Exam Vital Signs: Temp Pulse Resp BP Pulse Ox 98.0 F 92 17 117/65 99 09/04/19 00:15 09/04/19 00:15 09/04/19 00:15 09/04/19 00:15 09/04/19 00:15 Intake & Output 09/03/19 09/04/19 09/05/19 06:59 06:59 06:59 Intake Total 2350 5480 Output Total 0 Balance 2350 5480 Weight 76.3 kg 78 kg General appearance: PRESENT: no acute distress Respiratory exam: PRESENT: clear to auscultation gilma. ABSENT: rales, rhonchi, wheezes Cardiovascular exam: PRESENT: RRR. ABSENT: diastolic murmur, rubs, systolic murmur Neurological exam: PRESENT: alert, awake, oriented to person, oriented to place, oriented to time, oriented to situation, motor sensory deficit - left radial nerve palsy Results Laboratory Results: 09/04/19 06:05 09/04/19 06:05 09/04/19 09/04/19 06:05 06:05 WBC 6.4 RBC 3.50 L Hgb 10.7 L D Hct 30.8 L MCV 88 MCH 30.5 MCHC 34.7 RDW 13.3 Plt Count 281 Seg Neutrophils % 59.6 Sodium 136.1 L Potassium 3.5 L Chloride 98 Carbon Dioxide 33 H Anion Gap 5 BUN 4 L Creatinine 0.59 Est GFR ( Amer) > 60 Glucose 205 H Calcium 9.0 Assessment and Plan - Diagnosis (1) Diabetes type 2, uncontrolled Qualifiers: Glycemic state: with hyperglycemia Qualified Code(s): E11.65 - Type 2 d iabetes mellitus with hyperglycemia Is this a current diagnosis for this admission?: Yes (2) Patient noncompliance Is this a current diagnosis for this admission?: Yes (3) Abscess Is this a current diagnosis for this admission?: Yes (4) Flank pain Is this a current diagnosis for this admission?: Yes (5) Pilonidal cyst with abscess Is this a current diagnosis for this admission?: Yes (6) Tobacco abuse Is this a current diagnosis for this admission?: Yes (7) Left radial nerve palsy Is this a current diagnosis for this admission?: Yes - Plan Summary Summary: Tells me she stopped all of her medications for diabetes last year in December 2018 when she moved down here from [place]. Tells me that she could not afford her medicine. Also tells me that she started taking her medicine again 1 week ago.. According to the chart she is supposed to be taking metformin 500 mg twice daily and glipizide 2.5 mg twice daily. While interviewing the patient she received thousand milligrams of metformin as ordered by the ER provider, at approximately 1600 hrs. Patient is to be n.p.o. after midnight tonight. Think for the rest of the evening and tomorrow we will just treat her with a sliding scale of insulin, as you have ordered, and not give any further p.o. meds for her diabetes. Once she has her surgery tomorrow morning and begins eating a normal diet we can reinstitute her medications as prescribed above, and continue to cover with a sliding scale. I have ordered a hemoglobin A1c but I am sure it is going to be greatly elevated since she has not been taking her medicines regularly. I have also ordered a EKG, and do not see a need for a preop chest x-ray. Patient will need a primary care provider once she is discharged and we can help arrange this if necessary. 09/03/2019 Vital signs this morning showed her blood pressure to be up at 171/68, he was on no antihypertensives prior to coming to the hospital Blood sugar this morning was improved down to 332, and pressure was 98.1 pulse was 88 and regular Hemoglobin A1c 11.9 Repeat labs in the morning She has put back on both her metformin and glipizide. At the time of discharge I will write for a 30-day prescription 09/04/19 Patient medically stable Glucose is still high. Will send home on Metformin 1000 BID, Glipizide 2.5 BID 30 day supply written Patient has 2 week history of left radial nerve palsy, either secondary to laying on left side due to buttock abscess, or diabetic neuropathy Can not use steroids due to DM Will sign off - Time Time Spent with patient: 25-34 minutes
[2019-09-04] MEDS: GLIPIZIDE 5 MG TABLET PO SCH (09:50)
[2019-09-04] MEDS: INSULIN LISPRO 100 UNIT/ML 3 ML VIAL SUBCUT SCH (09:51)
[2019-09-04] MEDS ORDERED: POTASSIUM CHLORIDE 10 MEQ TABLET.ER PO SCH (10:00)
--- NOTE | 2019-09-04 10:29 | PDOC DISCHARGE SUMMARY ---
General - Admit/Disc Date/PCP Admission Date/Primary Care Provider: 09/02/19 14:46 Discharge Date: 09/04/19 - Discharge Diagnosis Final Diagnosis: pilonidal abscess - Assessment Summary: pt admitted on 09/02/19 for infected pilonidal cyst and abscess pt was taken to or on 09/03/19 for incision and drainage of infected pilonidal abscess also noted to have diabetes and not taking her diabetic meds pt seen by medicine service and started on metformin and glyburide wound examined on pod 1 and noted to be clean repaced pts taught wound care pt ready for dc home today instructed to to bid sitz baths with epsome salts will be given course of po abx and pain med upon discharge pt will be give some dressing supplies and appoint for f/u in surgery clinic in 7-10 days also will need f/u for her diabetes with her primary md. - Additional Information Resuscitation Status: Full Code Discharge Diet: As Tolerated Discharge Activity: Activity As Tolerated Referrals: CEASAR COKER MD [ACTIVE STAFF] - 09/21/19 9:15 am Prescriptions: Sulfamethoxazole/Trimethoprim [Bactrim 400-80 mg Tablet] 1 each PO Q12HP #20 tablet Glipizide [Glucotrol 5 mg Tablet] 2.5 mg PO BID 30 Days #60 cap Metformin HCl 1,000 mg PO BID 30 Days #60 tablet Hydrocodone/Acetaminophen [[place] 7.5-325 Tablet] 1 each PO Q6HP PRN #20 tablet PRN Reason: Home Medications: Loratadine [Claritin 10 mg Tablet] 10 mg PO DAILY 09/02/19 Glipizide [Glucotrol 5 mg Tablet] 2.5 mg PO BID 30 Days #60 cap 09/04/19 Hydrocodone/Acetaminophen [[place] 7.5-325 Tablet] 1 each PO Q6HP PRN #20 tablet 09/04/19 Metformin HCl 1,000 mg PO BID 30 Days #60 tablet 09/04/19 Sulfamethoxazole/Trimethoprim [Bactrim 400-80 mg Tablet] 1 each PO Q12HP #20 tablet 09/04/19 History of Present Illiness History of Present Illness: CARINE PARKER is a 33 year old female Physical Exam Vital Signs: Temp Pulse Resp BP Pulse Ox 98.0 F 92 17 117/65 99 09/04/19 00:15 09/04/19 00:15 09/04/19 00:15 09/04/19 00:15 09/04/19 00:15 Intake & Output 09/03/19 09/04/19 09/05/19 06:59 06:59 06:59 Intake Total 2350 5480 Output Total 0 Balance 2350 5480 Weight 76.3 kg 78 kg Results Laboratory Results: WBC 6.4 10^3/uL (4.0-10.5) 09/04/19 06:05 RBC 3.50 10^6/uL (3.72-5.28) L 09/04/19 06:05 Hgb 10.7 g/dL (12.0-15.5) L D 09/04/19 06:05 Hct 30.8 % (36.0-47.0) L 09/04/19 06:05 MCV 88 fl (80-97) 09/04/19 06:05 MCH 30.5 pg (27.0-33.4) 09/04/19 06:05 MCHC 34.7 g/dL (32.0-36.0) 09/04/19 06:05 RDW 13.3 % (11.5-14.0) 09/04/19 06:05 Plt Count 281 10^3/uL (150-450) 09/04/19 06:05 Lymph % (Auto) 27.9 % (13-45) 09/04/19 06:05 [place] % (Auto) 9.6 % (3-13) 09/04/19 06:05 Eos % (Auto) 2.3 % (0-6) 09/04/19 06:05 Baso % (Auto) 0.6 % (0-2) 09/04/19 06:05 Absolute Neuts (auto) 3.8 10^3/uL (1.7-8.2) 09/04/19 06:05 Absolute Lymphs (auto) 1.8 10^3/uL (0.5-4.7) 09/04/19 06:05 Absolute Monos (auto) 0.6 10^3/uL (0.1-1.4) 09/04/19 06:05 Absolute Eos (auto) 0.1 10^3/uL (0.0-0.6) 09/04/19 06:05 Absolute Basos (auto) 0.0 10^3/uL (0.0-0.2) 09/04/19 06:05 Seg Neutrophils % 59.6 % (42-78) 09/04/19 06:05 Sodium 136.1 mmol/L (137-145) L 09/04/19 06:05 Potassium 3.5 mmol/L (3.6-5.0) L 09/04/19 06:05 Chloride 98 mmol/L (98-107) 09/04/19 06:05 Carbon Dioxide 33 mmol/L (22-30) H 09/04/19 06:05 Anion Gap 5 (5-19) 09/04/19 06:05 BUN 4 mg/dL (7-20) L 09/04/19 06:05 Creatinine 0.59 mg/dL (0.52-1.25) 09/04/19 06:05 Est GFR ( Amer) > 60 (>60) 09/04/19 06:05 Est GFR (MDRD) Non-Af > 60 (>60) 09/04/19 06:05 Glucose 205 mg/dL (75-110) H 09/04/19 06:05 POC Glucose 209 mg/dL (70-110) H 09/04/19 06:03 Hemoglobin A1c % 11.9 % (4.7-6.0) H 09/02/19 17:35 Calcium 9.0 mg/dL (8.4-10.2) 09/04/19 06:05 Total Bilirubin 0.3 mg/dL (0.2-1.3) 09/02/19 14:30 Direct Bilirubin 0.3 mg/dL (0.0-0.4) 09/02/19 14:30 Neonat Total Bilirubin Not Reportable 09/02/19 14:30 Neonat Direct Bilirubin Not Reportable 09/02/19 14:30 Neonat Indirect Bili Not Reportable 09/02/19 14:30 AST 23 U/L (14-36) 09/02/19 14:30 ALT 28 U/L (<35) 09/02/19 14:30 Alkaline Phosphatase 93 U/L (38-126) 09/02/19 14:30 Total Protein 7.2 g/dL (6.3-8.2) 09/02/19 14:30 Albumin 3.5 g/dL (3.5-5.0) 09/02/19 14:30 Urine Color YELLOW 09/02/19 15:49 Urine Appearance SLIGHTLY-CLOUDY 09/02/19 15:49 Urine pH 7.0 (5.0-9.0) 09/02/19 15:49 Ur Specific [place] 1.025 09/02/19 15:49 Urine Protein NEGATIVE mg/dL (NEGATIVE) 09/02/19 15:49 Urine Glucose (UA) >=500 mg/dL (NEGATIVE) H 09/02/19 15:49 Urine Ketones TRACE mg/dL (NEGATIVE) H 09/02/19 15:49 Urine Blood SMALL (NEGATIVE) H 09/02/19 15:49 Urine Nitrite NEGATIVE (NEGATIVE) 09/02/19 15:49 Urine Bilirubin NEGATIVE (NEGATIVE) 09/02/19 15:49 Urine Urobilinogen NEGATIVE mg/dL (<2.0) 09/02/19 15:49 Ur Leukocyte Esterase TRACE (NEGATIVE) H 09/02/19 15:49 Urine WBC (Auto) 2 /HPF 09/02/19 15:49 Urine RBC (Auto) 1 /HPF 09/02/19 15:49 Urine Bacteria (Auto) TRACE /HPF 09/02/19 15:49 Squamous Epi Cells Auto 5 /HPF 09/02/19 15:49 Urine Mucus (Auto) RARE /LPF 09/02/19 15:49 Urine Ascorbic Acid NEGATIVE (NEGATIVE) 09/02/19 15:49 Urine HCG, Qual NEGATIVE (NEGATIVE) 09/02/19 15:49 Time Trough Drawn 0605 09/04/19 06:05 Vancomycin Trough 13.5 ug/mL (5.0-20.0) 09/04/19 06:05
[2019-09-04 11:04] VITALS: BP 135/61
== END 2019-09-04 11:50 | disposition home or self-care (01) ==
LOC: ER 13:33 → EH 14:46 → 4N 19:35
PROVIDERS: ATTEND Surgery
DX: L05.01 Pilonidal cyst with abscess (principal); E11.65 Type 2 diabetes mellitus with hyperglycemia; T38.3X6A Underdosing of insulin and oral hypoglycemic [antidiabetic] drugs, initial encounter; Z91.120 Patient's intentional underdosing of medication regimen due to financial hardship; G56.32 Lesion of radial nerve, left upper limb; F17.210 Nicotine dependence, cigarettes, uncomplicated; R10.9 Unspecified abdominal pain; Z98.51 Tubal ligation status
CPT/HCPCS: 99285; 96360; 36415 ×2; 87070; 87205; 82962 ×3; 85025 ×2; 81025; 87075; 80048; 80053; 81001; 80202; 83036; 93005; 93010; 10080; J2250; J3010; J3490 ×5; J1815 ×3; J2270 ×2; J2405; J7060 ×3; J7050 ×3; J7030 ×2; J2704; J3370 ×3; J2543 ×3; 300; G0378

== ENCOUNTER 2020-03-13 06:16 | Emergency (ER) | payer MEDICAID ==
[2020-03-13 07:16] LABS: APPEARANCE,URINE CLOUDY; BILIRUBIN,URINE NEGATIVE (NEGATIVE); COLOR,URINE YELLOW; GLUCOSE, URINE >=500 mg/dL (NEGATIVE); KETONES,URINE NEGATIVE (NEGATIVE); LEUKOCYTE ESTERASE,URINE LARGE (NEGATIVE); NITRITE,URINE NEGATIVE (NEGATIVE); PROTEIN,URINE NEGATIVE (NEGATIVE); URINE SPECIFIC GRAVITY 1.028; UROBILINOGEN,URINE NEGATIVE mg/dL (<2.0)
[2020-03-13] MEDS ORDERED: NORMAL SALINE 1000 ML 1,000 ML IV ONE (08:13)
--- NOTE | 2020-03-13 08:14 | ER Document Report ---
ED Blood Sugar Problem - General Chief Complaint: High Blood Sugar Stated Complaint: BLOOD SUGAR ISSUE,BLOOD IN URINE Time Seen by Provider: 03/13/20 08:06 Primary Care Provider: PAOLA CHOI DO [NO LOCAL MD] - Follow up in 3-5 days (for primary care follow up) TRAVEL OUTSIDE OF THE [place] IN LAST 30 DAYS: No - HPI Notes: 34-year-old female to the emergency department with complaints of elevated blood sugar and blood in her urine. She states that she has noticed blood in her urine for the past couple of days and suspected that maybe she had a urinary tract infection. Admits to some chills briefly a week ago but denies any fevers, nausea, vomiting, flank pain, back pain, dysuria. She states she is diabetic and does not take her medicines. She states "I am a bad patient". She supposed be taking metformin and glipizide. She does have these medicines but she states she just does not take them. Denies history of diabetic ketoacidosis. She smokes. Denies any chest pain, shortness of breath, headaches. - Related Data Allergies/Adverse Reactions: No Known Allergies Allergy (Unverified 09/02/19 16:05) Home Medications: metformin. glipizide Past Medical History - General Information source: Patient - Social History Smoking Status: Current Every Day Smoker Chew tobacco use (# tins/day): No Frequency of alcohol use: Occasional Drug Abuse: None Lives with: Spouse/Significant other Family History: Reviewed & Not Pertinent, CAD Patient has homicidal ideation: No Endocrine Medical History: Reports: Hx Diabetes Mellitus Type 2 Past Surgical History: Reports: Hx Tubal Ligation - Immunizations Hx Diphtheria, Pertussis, Tetanus Vaccination: Yes Review of Systems - Review of Systems Constitutional: Chills. denies: Fever EENT: No symptoms reported. denies: Ear pain, Throat pain Cardiovascular: denies: Chest pain, Palpitations, Heart racing, Orthopnea, Dyspnea, Syncope Respiratory: denies: Cough, Short of breath Gastrointestinal: denies: Abdominal pain, Diarrhea, Nausea, Vomiting Genitourinary: Frequency, Hematuria. denies: Burning, Dysuria, Flank pain Musculoskeletal: No symptoms reported Skin: No symptoms reported Neurological/Psychological: No symptoms reported -: Yes All other systems reviewed and negative Physical Exam - Vital signs Vitals: Temp Pulse Resp BP Pulse Ox 98.3 F 102 H 16 117/71 97 03/13/20 06:28 03/13/20 06:28 03/13/20 06:28 03/13/20 06:28 03/13/20 06:28 Interpretation: Normal - General General appearance: Appears well, Alert In distress: None - HEENT Head: Normocephalic, Atraumatic Eyes: Normal Pupils: PERRL Neck: Normal, Supple - Respiratory Respiratory status: No respiratory distress Chest status: Nontender Breath sounds: Normal. No: Rales, Rhonchi, Wheezing Chest palpation: Normal - Cardiovascular Rhythm: Regular Heart sounds: Normal auscultation Murmur: No Notes: No pedal edema - Abdominal Inspection: Normal Distension: No distension Bowel sounds: Normal Tenderness: Nontender. No: McBurney's point, Morton's sign, Guarding, Rebound Organomegaly: No organomegaly - Back Back: Normal. No: CVA tenderness - Extremities General upper extremity: Normal inspection, Nontender, Normal color, Normal ROM, Normal temperature General lower extremity: Normal inspection, Nontender, Normal color, Normal ROM, Normal temperature, Normal weight bearing. 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 No: Pronator drift Sensory: Normal - Psychological Associated symptoms: Normal affect, Normal mood - Skin Skin Temperature: Warm Skin Moisture: Dry Skin Color: Normal Course - Re-evaluation Re-evalutation: 03/13/20 09:19 Noncompliant diabetic to the emergency department with hematuria. She has a urinary tract infection by urinalysis. Asked for a urine culture. We will give her Rocephin. Noted blood sugar in 442. She does have a history of DKA. Will obtain labs and give fluids to evaluate further. Patient agrees with the plan. 03/13/20 11:07 Noted labs. Patient would like to be discharged. She has had good response with insulin today. Her blood sugar is now down to 214. She would like to be discharged home. Encouraged her and educated her on the importance of taking her diabetes medicine. I will send her outpatient for follow-up with primary care. She is to return if any worsening symptoms. Impression: UTI, hyperglycemia in the setting of noncompliant diabetes. Patient to be sent outpatient for follow-up. She is encouraged to return if worse. She will be sent home on Keflex for UTI. She got 1 g of Rocephin here in [facility]. - Vital Signs Vital signs: Temp Pulse Resp BP Pulse Ox 98.3 F 102 H 16 117/71 97 03/13/20 06:37 03/13/20 06:28 03/13/20 06:28 03/13/20 06:28 03/13/20 06:28 - Laboratory Result Diagrams: 03/13/20 09:20 03/13/20 09:25 Laboratory results interpreted by me: 03/13/20 03/13/20 03/13/20 06:24 06:45 09:20 Hct 34.9 L Plt Count 466 H Sodium Creatinine Glucose POC Glucose 442 H* AST Albumin Urine Glucose (UA) >=500 H Urine Blood MODERATE H Ur Leukocyte Esterase LARGE H 03/13/20 09:25 Hct Plt Count Sodium 136.0 L Creatinine 0.47 L Glucose 310 H POC Glucose AST 11 L Albumin 3.2 L Urine Glucose (UA) Urine Blood Ur Leukocyte Esterase 03/13/20 11:09 Laboratory 03/13/20 03/13/20 03/13/20 06:24 06:45 09:20 WBC 9.8 RBC 3.99 Hgb 12.2 Hct 34.9 L MCV 88 MCH 30.5 MCHC 34.8 RDW 13.7 Plt Count 466 H Lymph % (Auto) 22.2 Brown % (Auto) 5.7 Eos % (Auto) 1.2 Baso % (Auto) 0.6 Absolute Neuts (auto) 6.9 Absolute Lymphs (auto) 2.2 Absolute Monos (auto) 0.6 Absolute Eos (auto) 0.1 Absolute Basos (auto) 0.1 Seg Neutrophils % 70.3 VBG pH VBG pCO2 VBG HCO3 VBG Base Excess Sodium Potassium Chloride Carbon Dioxide Anion Gap BUN Creatinine Est GFR ( Amer) Est GFR (MDRD) Non-Af Glucose POC Glucose 442 H* Calcium Total Bilirubin Direct Bilirubin Neonat Total Bilirubin Neonat Direct Bilirubin Neonat Indirect Bili AST ALT Alkaline Phosphatase Total Protein Albumin Urine Color YELLOW Urine Appearance CLOUDY Urine pH 7.0 Ur Specific [place] 1.028 Urine Protein NEGATIVE Urine Glucose (UA) >=500 H Urine Ketones NEGATIVE Urine Blood MODERATE H Urine Nitrite NEGATIVE Urine Bilirubin NEGATIVE Urine Urobilinogen NEGATIVE Ur Leukocyte Esterase LARGE H Urine WBC (Auto) 57 Urine RBC (Auto) 14 Urine Bacteria (Auto) TRACE Squamous Epi Cells Auto 6 Urine Ascorbic Acid NEGATIVE 03/13/20 03/13/20 09:25 09:25 WBC RBC Hgb Hct MCV MCH MCHC RDW Plt Count Lymph % (Auto) Brown % (Auto) Eos % (Auto) Baso % (Auto) Absolute Neuts (auto) Absolute Lymphs (auto) Absolute Monos (auto) Absolute Eos (auto) Absolute Basos (auto) Seg Neutrophils % VBG pH 7.40 VBG pCO2 48.1 VBG HCO3 29.3 VBG Base Excess 3.6 Sodium 136.0 L Potassium 3.7 Chloride 99 Carbon Dioxide 29 Anion Gap 8 BUN 8 Creatinine 0.47 L Est GFR ( Amer) > 60 Est GFR (MDRD) Non-Af > 60 Glucose 310 H POC Glucose Calcium 9.7 Total Bilirubin 0.4 Direct Bilirubin 0.3 Neonat Total Bilirubin Not Reportable Neonat Direct Bilirubin Not Reportable Neonat Indirect Bili Not Reportable AST 11 L ALT 9 Alkaline Phosphatase 89 Total Protein 6.6 Albumin 3.2 L Urine Color Urine Appearance Urine pH Ur Specific [place] Urine Protein Urine Glucose (UA) Urine Ketones Urine Blood Urine Nitrite Urine Bilirubin Urine Urobilinogen Ur Leukocyte Esterase Urine WBC (Auto) Urine RBC (Auto) Urine Bacteria (Auto) Squamous Epi Cells Auto Urine Ascorbic Acid Discharge - Discharge Clinical Impression: Hyperglycemia due to diabetes mellitus UTI (urinary tract infection) Qualifiers: Urinary tract infection type: acute cystitis Hematuria presence: with hematuria Qualified Code(s): N30.01 - Acute cystitis with hematuria Condition: Stable Disposition: HOME, SELF-CARE Instructions: Cephalexin ([facility]), Hyperglycemia ([facility]), Urinary Tract Infection ([facility]) Additional Instructions: Complete all antibiotics. Please take your diabetic medication without fail. He had elevated blood sugar today because you have not been taking the medicines for diabetes and have an infection. Please return if you get worse. Follow-up with the primary care physician provided to you. Push fluids. Prescriptions: Cephalexin Monohydrate [Keflex 500 mg Capsule] 500 mg PO BID 7 Days #14 capsule Referrals: PAOLA CHOI DO [NO LOCAL MD] - Follow up in 3-5 days (for primary care follow up)
[2020-03-13] MEDS ORDERED: CEFTRIAXONE 1 GM/D5W RTU 1 GM/50 ML RTUPB IV ONE (08:49)
[2020-03-13] MEDS ORDERED: INSULIN REG, HUMAN 100 UNIT/ML 3 ML VIAL (PYX) IV ONE (09:15)
[2020-03-13 10:05] LABS: VENOUS BLOOD BASE EXCESS 3.6 mmol/L; VENOUS BLOOD HCO3 29.3 mmol/L (20-32); VENOUS BLOOD PCO2 48.1 mmHg (35-63); VENOUS BLOOD PH 7.4 (7.30-7.42)
[2020-03-13 10:13] LABS: ABSOLUTE BASOPHILS # (AUTO) 0.1 10^3/uL (0.0-0.2); ABSOLUTE EOSINOPHILS # (AUTO) 0.1 10^3/uL (0.0-0.6); ABSOLUTE LYMPHOCYTES (AUTO) 2.2 10^3/uL (0.5-4.7); ABSOLUTE MONOCYTES (AUTO) 0.6 10^3/uL (0.1-1.4); ABSOLUTE NEUT (AUTO) 6.9 10^3/uL (1.7-8.2); BASOPHILS % (AUTO) 0.6 % (0-2); EOSINOPHILS % (AUTO) 1.2 % (0-6); HEMATOCRIT 34.9 % (36.0-47.0); HEMOGLOBIN 12.2 g/dL (12.0-15.5); LYMPHOCYTES % (AUTO) 22.2 % (13-45); MEAN CORPUSCULAR HEMOGLOBIN 30.5 pg (27.0-33.4); MEAN CORPUSCULAR HGB CONC 34.8 g/dL (32.0-36.0); MEAN CORPUSCULAR VOLUME 88 fl (80-97); MONOCYTES % (AUTO) 5.7 % (3-13); PLATELET COUNT 466 10^3/uL (150-450); RED BLOOD COUNT 3.99 10^6/uL (3.72-5.28); RED CELL DISTRIBUTION WIDTH 13.7 % (11.5-14.0); SEGMENTED NEUTROPHILS % (AUTO) 70.3 % (42-78); TOTAL CELLS COUNTED % (AUTO) 100 %; WHITE BLOOD COUNT 9.8 10^3/uL (4.0-10.5)
[2020-03-13 10:19] LABS: ALBUMIN 3.2 g/dL (3.5-5.0); ALKALINE PHOSPHATASE 89 U/L (38-126); ANION GAP 8 (5-19); ASPARTATE AMINO TRANSFERASE 11 U/L (14-36); BILIRUBIN,DIRECT 0.3 mg/dL (0.0-0.4); BILIRUBIN,TOTAL 0.4 mg/dL (0.2-1.3); BLOOD UREA NITROGEN 8 mg/dL (7-20); CALCIUM 9.7 mg/dL (8.4-10.2); CARBON DIOXIDE 29 mmol/L (22-30); CHLORIDE 99 mmol/L (98-107); GLUCOSE 310 mg/dL (75-110); POTASSIUM 3.7 mmol/L (3.6-5.0); TOTAL PROTEIN 6.6 g/dL (6.3-8.2)
[2020-03-13 11:18] VITALS: BP 134/87
== END 2020-03-13 11:14 | disposition home or self-care (01) ==
LOC: ER 06:16
DX: E11.65 Type 2 diabetes mellitus with hyperglycemia (principal); T38.3X6A Underdosing of insulin and oral hypoglycemic [antidiabetic] drugs, initial encounter; Z91.128 Patient's intentional underdosing of medication regimen for other reason; Z91.14 Patient's other noncompliance with medication regimen; N30.01 Acute cystitis with hematuria; F17.200 Nicotine dependence, unspecified, uncomplicated
CPT/HCPCS: 99284; 96375; 96365; 36415; 87040; 87086; 82010; 82962; 85025; 87088; 80053; 81001; 87186; 82803; J1815; J7030; J0696